=== PATIENT | female | born 1995 | race Caucasian/White ===

== ENCOUNTER 2019-07-18 21:49 | Emergency (ER) | payer MEDICAID, SELFPAY ==
[2019-07-18 21:50] VITALS: BP 112/72; PULSE 82; RESP 15; TEMP 36.8; BMI 39.1
--- NOTE | 2019-07-18 22:39 | CT_ITS ---
HISTORY: RT FLANK/RLQ PAIN AND BLOODY STOOLS,ELEVATED WBCHX:APPENDECTOMY ADDITIONAL HISTORY: None provided. TECHNIQUE: CT images were obtained of the abdomen and pelvis with 100 ml of Isovue 300 IV contrast. Enteric contrast was given. A radiation dose optimization technique was used for this scan. Number of images including paperwork: [id number] COMPARISON: None FINDINGS: LOWER THORAX: No consolidation or pleural effusion. Minimal dependent atelectasis. LIVER: No concerning focal lesion. GALLBLADDER: Contracted. No radiopaque calculi. BILE DUCTS: No significant biliary dilatation. SPLEEN: Upper normal size, about 13 cm AP. PANCREAS: Unremarkable. ADRENAL GLANDS: Unremarkable. KIDNEYS/URETERS: Unremarkable. BOWEL: No bowel obstruction. No significant bowel wall thickening. No localized inflammation. APPENDIX: No evidence of appendicitis. FREE FLUID: Trace free fluid. FREE AIR: None. LYMPH NODES: No pathologic appearing adenopathy. PERITONEUM, RETROPERITONEUM AND MESENTERY: Otherwise unremarkable. VASCULATURE: Unremarkable as imaged. PELVIS: Unremarkable bladder, uterus and adnexa. ABDOMINAL WALL: Unremarkable. OSSEOUS AND SOFT TISSUE STRUCTURES: No acute skeletal findings. CT/Abdomen/Pelvis WITH Contrast IMPRESSION: No acute abdominopelvic abnormality. Individualized dose optimization techniques were used for this CT. at 0105 Reported and signed by: Lauren Morillo MD Electronically Signed: Lauren Morillo MD at 1:05 EDT Tel , Service support ,
--- NOTE | 2019-07-18 22:42 | ED.VIS.GEN ---
History of Present Illness Chief Complaint: Flank Pain Detail of Chief Complaint: Right flank pain, blood in stool Informant: Patient, Family Onset: Today Current Severity: Mild Maximum Severity: Moderate Narrative: Patient presents with pain to the right flank region today. She states that she has chronic diarrhea that tends to be mucousy. Today she noted some blood mixed with the stool when she wiped. There is also some blood in the bowl. She has no known history of ulcerative colitis, Crohn's, or irritable bowel. She does report having some vaginal bleeding recently as well. Her last period ended a week and a half ago. Significant other than states that she started bleeding last evening after they were using a sex toy. She denies vaginal pain. 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 She states she was told that the cancer could come back but would be on her colon if this were to occur. Past Medical History - Allergies and Home Meds Allergies/Adverse Reactions: Allergies carbinoxamine [From Rondec] Allergy (Verified 07/18/19 21:55) Hives pseudoephedrine [From Rondec] Allergy (Verified 07/18/19 21:55) Hives Prior records reviewed: Yes Past Medical History: - - Reviewed Surgical History: appendectomy Lives: Spouse/ Significant Other Review of Systems General: Denies: Chills, Fever Eyes: Denies: Visual changes - bilaterally ENT: Denies: Bilateral ear pain Cardiovascular: Denies: Chest pain Respiratory: Denies: Dyspnea, Cough Gastrointestinal: Reports: Abdominal pain, Diarrhea - Blood mixed with stool Genitourinary: Denies: Dysuria Musculoskeletal: Reports: Back pain - Mild pain to right flank region Neurological: Denies: Headache Endocrine: Denies: Polyuria, Polydipsia Hematologic: Denies: Easy bruising Allergy: Denies: Uticaria Physical Exam Vital Signs/Narrative: Vital Signs Temp Pulse Resp BP 07/18/19 21:50 98.2 F 82 15 112/72 Inital Vital Signs reviewed: Yes General: Well nourished, Well developed ENT: Moist mucous membranes Cardiovascular: Regular rate, Regular rhythm Respiratory: No distress, CTA bilaterally Abdomen: Soft, Tender - Mild tenderness of the mid and lower abdomen., Hypoactive bowel sounds. Negative for: Guarding, Rebound tenderness Extremities: Nontender Skin: Normal color Neurological: Alert, Oriented x3 Psychological: Normal affect Diagnostic/Tx/Re-eval Impressions Abdomen/Pelvis CT 07/18/19 22:39 IMPRESSION: No acute abdominopelvic abnormality. Individualized dose optimization techniques were used for this CT. at 0105 Reported and signed by: Lauren Morillo MD Electronically Signed: Lauren Morillo MD at 1:05 EDT Tel , Service support , 07/18/19 22:39 Abdomen/Pelvis WITH Contrast [CT] Stat Laboratory Results 07/18/19 07/18/19 07/18/19 23:07 23:07 23:07 WBC 11.4 H RBC 5.02 Hgb 15.1 H Hct 45.5 MCV 90.6 MCH 30.1 MCHC 33.2 RDW Std Deviation 41.4 RDW Coeff of Christiane 12.6 Plt Count 248 MPV 10.1 Immature Gran % (Auto) 0.400 Neut % (Auto) 65.6 Lymph % (Auto) 22.6 [place] % (Auto) 6.6 Eos % (Auto) 4.4 Baso % (Auto) 0.4 Absolute Neuts (auto) 7.5 Absolute Lymphs (auto) 2.57 Nucleated RBC % 0 PT 12.8 INR 1.0 APTT 30.5 Sodium 143 Potassium 3.6 Chloride 110 H Carbon Dioxide 29.0 Anion Gap 4 L BUN 15 Creatinine 0.78 Estim Creat Clear Calc 101.80 Est GFR (MDRD) Af Amer 119 Est GFR (MDRD) Non-Af 98 BUN/Creatinine Ratio 19.3 Glucose 93 Calcium 8.7 Serum , Qual Urine Color Urine Clarity Urine pH Ur Specific Driscoll Urine Protein Urine Glucose (UA) Urine Ketones Urine Occult Blood Urine Nitrite Urine Bilirubin Urine Urobilinogen Ur Leukocyte Esterase Urine RBC Urine WBC Ur Squamous Epith Cells Urine Bacteria Urine Mucus 07/18/19 07/19/19 23:07 00:02 WBC RBC Hgb Hct MCV MCH MCHC RDW Std Deviation RDW Coeff of Christiane Plt Count MPV Immature Gran % (Auto) Neut % (Auto) Lymph % (Auto) [place] % (Auto) Eos % (Auto) Baso % (Auto) Absolute Neuts (auto) Absolute Lymphs (auto) Nucleated RBC % PT INR APTT Sodium Potassium Chloride Carbon Dioxide Anion Gap BUN Creatinine Estim Creat Clear Calc Est GFR (MDRD) Af Amer Est GFR (MDRD) Non-Af BUN/Creatinine Ratio Glucose Calcium Serum , Qual NEGATIVE Urine Color Alannah Urine Clarity Cloudy Urine pH 7.0 Ur Specific Driscoll 1.010 Urine Protein Negative Urine Glucose (UA) Normal Urine Ketones Negative Urine Occult Blood 250 H Urine Nitrite Negative Urine Bilirubin Negative Urine Urobilinogen Normal Ur Leukocyte Esterase 25 H Urine RBC 50-100 SEEN Urine WBC 0-5 SEEN Ur Squamous Epith Cells 5-10 SEEN Urine Bacteria 0 SEEN Urine Mucus 0 SEEN - Medical Decision Making She was given Toradol and Zofran followed by a dose of Phenergan for continued nausea. Blood counts are unremarkable. CT is unremarkable. 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 She will be given Dr. De La Garza's information. ED Disposition - Plan for ED Patient: Disposition: Home or Assisted Living Diagnosis: Lower gastrointestinal bleed Instructions: FLANK PAIN, Uncertain Cause, When You Have Gastrointestinal (GI) Bleeding Prescriptions: Ondansetron [Zofran Odt] 4 mg PO Q8H PRN PRN #10 tablet PRN Reason: Nausea Referrals: Darinel De La Garza MD [STAFF PHYSICIAN] - As soon as possible
[2019-07-18] MEDS: Ketorolac 30 MG/ML Syringe IV (23:00)
[2019-07-18] MEDS: Ondansetron 4 MG/2 ML Vial IV (23:00)
[2019-07-18] MEDS: 0.9% Normal Saline 1,000 ML 150 ML IV (23:00)
[2019-07-18 23:17] LABS: Absolute Lymphocyte Count 2.57 X10^3/uL (0.83-4.51); Absolute Neutrophil Count 7.5 X10^3/uL (2.0-7.7); Basophil# 0.04 X10^3/uL; Basophil% 0.4 % (0-1); Eosinophils% 4.4 % (0-5); Hematocrit 45.5 % (37-47); Hemoglobin 15.1 g/dL (12.0-15.0); Lymphocyte # 2.57 X10^3/ul (4.0); Lymphocyte % 22.6 % (19-41); Mean Corp Hgb Conc 33.2 g/dL (32-36); Mean Corpuscular Hgb 30.1 pg (27.0-32.0); Mean Corpuscular Volume 90.6 fL (81-99); Mean Platelet Vol. 10.1 fl (6.2-12.0); Monocyte# 0.75 X10^3/uL; Monocyte% 6.6 % (0-10); NRBC Flagged by Analyzer 0 % (0-5); Neutrophil # 7.46 X10^3/uL (2.7-7.7); Neutrophil % 65.6 % (47-70); Platelet Count 248 K/mm3 (150-450); RBC Distribution Width CV 12.6 % (11.6-14.6); RBC Distribution Width SD 41.4 fl (35.1-43.9); Red Blood Count 5.02 M/mm3 (4.2-5.4); White Blood Count 11.4 K/mm3 (4.4-11.0)
[2019-07-18 23:24] LABS: Prothrombin Time (Protime)PT. 12.8 SECONDS (11.7-14.9)
[2019-07-18 23:25] LABS: Partial Thromboplast Time 30.5 Seconds (24.1-36.2)
[2019-07-18 23:27] LABS: Anion Gap 4 (5-15); BUN 15 mg/dL (7-18); BUN/Creat Ratio 19.3 RATIO (10-20); Calcium,Total 8.7 mg/dL (8.5-10.1); Chloride 110 mmol/L (98-107); Creatinine, Serum 0.78 mg/dL (0.55-1.02); EST Glomerular Filtration Rate 98 mL/min (>60); Est Glom Filt Rate - Afr Amer 119 mL/min (>60); Glucose 93 mg/dL (74-106); Potassium 3.6 mmol/L (3.5-5.1); Sodium Level 143 mmol/L (136-145)
[2019-07-18 23:35] LABS: Internal QC Validated? YES +Cl - CLEAR BKGD; Pregnancy, Serum, hCG Quali. NEGATIVE Negative
[2019-07-19 00:18] LABS: Bacteria 0 SEEN /hpf (None Seen); Color, Urine Amber (Yellow); Glucose, Dipstick Normal (Normal); Ketone-Dipstick Negative (Negative); Leukocyte Esterase-Dipstick 25 /ul (Negative); Mucous, Urine 0 SEEN /hpf (<or=2+); Nitrite-Dipstick Negative (Negative); Occult Blood-Urine 250 /ul (Negative); Protein-Dipstick Negative (Negative); Urine Bilirubin Dipstick Negative (Negative); Urine Clarity Cloudy (Clear); Urine Urobilinogen Normal (Normal)
[2019-07-19 00:26] LABS: Red Blood Cells-Urine 50-100 SEEN /hpf (0-5); Squamous Epithelial Cells - UA 5-10 SEEN /hpf (5-10); White Blood Cells 0-5 SEEN /hpf (0-5)
[2019-07-19 01:00] VITALS: PULSE 60; RESP 24; O2SAT 97
[2019-07-19] MEDS: proMETHazine 25 MG/ML Syringe 12.5 MG IV (01:06)
== END 2019-07-19 01:26 | disposition home or self-care (01) ==
PROVIDERS: Emergency Provider Emergency Medicine
DX: K92.1 Melena (principal); Z85.038 Personal history of other malignant neoplasm of large intestine
CPT/HCPCS: 74177; 80048; 81001; 84703; 85025; 85610; 85730; 96361; 96374; 96375; 99284; J7030; Q9967; A4216; J2405

== ENCOUNTER 2019-07-22 21:55 | Inpatient (IN) | payer MEDICAID, SELFPAY ==
[2019-07-21 15:09] VITALS: BMI 39.1
[2019-07-22 21:57] VITALS: BP 126/76; PULSE 88; RESP 16; TEMP 36.9; O2SAT 100; BMI 38.2
--- NOTE | 2019-07-22 22:22 | CM.ED ---
SOCIAL WORK CALL TO CRISIS TO UPDATE ON PATIENT. SPOKE WITH MARC. MARC REQUESTING CALL WHEN PATIENT IS MEDICALLY CLEARED FOR CONSULT. UPDATED STAFF. PREMA LIZAMA, PHARMACIST IN CHARGE, TRACK REPAIR WORKER.
[2019-07-22 22:25] LABS: Absolute Lymphocyte Count 2.14 X10^3/uL (0.83-4.51); Absolute Neutrophil Count 8.4 X10^3/uL (2.0-7.7); Basophil# 0.05 X10^3/uL; Basophil% 0.4 % (0-1); Eosinophil# 0.49 X10^3/uL; Eosinophils% 4.2 % (0-5); Hematocrit 46.9 % (37-47); Hemoglobin 15.3 g/dL (12.0-15.0); Lymphocyte # 2.14 X10^3/ul (4.0); Lymphocyte % 18.2 % (19-41); Mean Corp Hgb Conc 32.6 g/dL (32-36); Mean Corpuscular Hgb 29.4 pg (27.0-32.0); Mean Corpuscular Volume 90.2 fL (81-99); Mean Platelet Vol. 9.8 fl (6.2-12.0); Monocyte# 0.61 X10^3/uL; Monocyte% 5.2 % (0-10); NRBC Flagged by Analyzer 0 % (0-5); Neutrophil # 8.42 X10^3/uL (2.7-7.7); Neutrophil % 71.5 % (47-70); Platelet Count 275 K/mm3 (150-450); RBC Distribution Width CV 12.5 % (11.6-14.6); RBC Distribution Width SD 41.4 fl (35.1-43.9); White Blood Count 11.8 K/mm3 (4.4-11.0)
[2019-07-22 22:36] LABS: Internal QC Validated? YES +Cl - CLEAR BKGD; Pregnancy, Serum, hCG Quali. NEGATIVE Negative
[2019-07-22] MEDS: LORazepam 2 MG/ML Syringe 1 MG IV (22:36)
[2019-07-22 22:42] LABS: Anion Gap 3 (5-15); BUN 9 mg/dL (7-18); BUN/Creat Ratio 12.7 RATIO (10-20); Chloride 108 mmol/L (98-107); Creatinine, Serum 0.71 mg/dL (0.55-1.02); EST Glomerular Filtration Rate 109 mL/min (>60); Est Glom Filt Rate - Afr Amer 132 mL/min (>60); Estimated Creatinine Clearance 111.84 ml/min; Glucose 83 mg/dL (74-106); Magnesium 1.9 mg/dL (1.6-2.6); Potassium 3.3 mmol/L (3.5-5.1); Sodium Level 140 mmol/L (136-145)
[2019-07-22 22:50] LABS: Amphetamine Urine VISTA NEGATIVE (<1000 ng/mL); Barbiturate Urine VISTA NEGATIVE (< 200 ng/mL); Benzodiazepine Urine VISTA NEGATIVE (< 200 ng/mL); Cocaine Urine VISTA NEGATIVE (< 300 ng/mL); Ecstacy Urine VISTA NEGATIVE (< 500 ng/mL); Methadone Urine VISTA NEGATIVE (< 300 ng/mL); PCP Urine VISTA NEGATIVE (< 25 ng/mL); THC Urine VISTA NEGATIVE (< 50 ng/mL); Vista UDS pH Range 6
--- NOTE | 2019-07-22 23:00 | ED.RN ---
HOSPITALIST PAGED FOR DR [facility]
--- NOTE | 2019-07-22 23:01 | ED.DCSUM_ITS ---
- ER Visit Summary Date of Service: 07/22/19 Chief Complaint: [Depression and suicidal attempt] History of Present Illness: The patient is a 24 F [presents to the emergency department after an attempted intentional overdose about a half an hour ago. Patient states that she took 2 handfuls of Unisom tablets 50 mg each. Patient feels nauseated but has not vomited. Patient denies auditory or visual hallucinations. She does have history of depression. Patient states that she has been compliant with her medications. She denies any other ingestions. She denies any illicit drug use. She denies any alcohol.] Physical Examination: [HEENT-PERRLA, EOMI. Cranial nerves II through XII grossly intact. TMs clear. Mucous membranes dry. No adenopathy. Speech is slightly slurred. Cardiovascular-regular rate and rhythm without murmur or ectopy Lungs-clear to auscultation, chest wall stable without crepitus or subcu emphysema Abdomen-normoactive bowel sounds, soft, nontender, no rebound or rigidity, no peritoneal signs. Extremities-intact ?4, normal range of motion, normal pulses, atraumatic] Test Results: [CBC with differential showed a white count of 11.8, hemoglobin 15, hematocrit 47, platelets 275. Chemistries unremarkable. hCG was negative. Alcohol was negative. Toxicology screen was normal. Tylenol and salicylate level pending]. EKG showed a sinus tachycardia with ventricular rate of 108 bpm with no acute ST segment changes. Emergency Department Course and Treatment: [Patient case was discussed with poison control. Given the patient was already symptomatic it was recommended that she not receive charcoal the risk of aspiration. Patient did receive 1 mg of Ativan for increased agitation.] Treatment Plan: [] Disposition: [Admit to ICU] Impression: [Intentional drug overdose Suicidal ideation Depression Anticholinergic syndrome] This note was generated with [employer] dictation software. It may contain incorrect words, spelling, and punctuation that were not noted in review of the chart prior to signing ED Disposition - Plan for ED Patient: Referrals: Care Physician,No Primary [Primary Care Provider] -
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
--- NOTE | 2019-07-22 23:09 | ED.RN ---
NO OLD EKGS
[2019-07-22 23:14] VITALS: BP 93/56; PULSE 101; RESP 16; O2SAT 96
[2019-07-22 23:23] LABS: Acetaminophen (Tylenol) Level < 2.0 ug/mL (10.0-30.0); Salicylate 3.5 mg/dL (2.8-20.0)
[2019-07-23] VITALS (34 sets, daily range): BP systolic 86–144; BP diastolic 48–115; PULSE 64–107; RESP 13–26; TEMP 36.6–36.9; O2SAT 93–100; BMI 39.2
[2019-07-23] MEDS: LORazepam 2 MG/ML Syringe 1 MG IV ×2 (00:15→01:36)
--- NOTE | 2019-07-23 00:48 | NURSING ---
pt unable to answer.
[2019-07-23] MEDS: Lactated Ringers 1,000 ML 100 ML IV ×2 (00:57→10:24)
[2019-07-23] MEDS: Potassium Chloride 10mEq/100mL 10 MEQ/100 ML IV.SOLN. 100 MEQ IV BOLUS ×4 (01:12→04:39)
[2019-07-23] MEDS: 0.9% NaCl IVPB Med Flush (250 mL) 15 ML IV (01:12)
[2019-07-23] MEDS: 0.9% NaCl Peripheral Flush Adult/Peds IV (01:36)
--- NOTE | 2019-07-23 03:05 | NURSING ---
updated poison control at this time.
[2019-07-23 06:05] LABS: Absolute Lymphocyte Count 1.77 X10^3/uL (0.83-4.51); Absolute Neutrophil Count 11.5 X10^3/uL (2.0-7.7); Basophil# 0.05 X10^3/uL; Basophil% 0.3 % (0-1); Eosinophil# 0.12 X10^3/uL; Eosinophils% 0.8 % (0-5); Hematocrit 44.3 % (37-47); Hemoglobin 14.7 g/dL (12.0-15.0); Lymphocyte # 1.77 X10^3/ul (4.0); Lymphocyte % 12.3 % (19-41); Mean Corp Hgb Conc 33.2 g/dL (32-36); Mean Corpuscular Hgb 29.9 pg (27.0-32.0); Mean Platelet Vol. 10.2 fl (6.2-12.0); Monocyte# 0.85 X10^3/uL; Monocyte% 5.9 % (0-10); NRBC Flagged by Analyzer 0 % (0-5); Neutrophil # 11.48 X10^3/uL (2.7-7.7); Neutrophil % 80.2 % (47-70); Platelet Count 248 K/mm3 (150-450); RBC Distribution Width CV 12.5 % (11.6-14.6); RBC Distribution Width SD 41.4 fl (35.1-43.9); Red Blood Count 4.92 M/mm3 (4.2-5.4); White Blood Count 14.3 K/mm3 (4.4-11.0)
[2019-07-23 06:59] LABS: Anion Gap 8 (5-15); BUN 7 mg/dL (7-18); BUN/Creat Ratio 9.8 RATIO (10-20); Chloride 109 mmol/L (98-107); Creatinine, Serum 0.71 mg/dL (0.55-1.02); EST Glomerular Filtration Rate 109 mL/min (>60); Est Glom Filt Rate - Afr Amer 132 mL/min (>60); Estimated Creatinine Clearance 111.84 ml/min; Glucose 94 mg/dL (74-106); Potassium 3.9 mmol/L (3.5-5.1); Sodium Level 142 mmol/L (136-145)
--- NOTE | 2019-07-23 07:53 | CON.PCM_ITS ---
Problem List (1) Anticholinergic drug overdose Status: Acute Qualifiers: Encounter type: initial encounter Injury intent: intentional self-harm Qualified Code(s): T44.3X2A - Poisoning by other parasympatholytics [anticholinergics and antimuscarinics] and spasmolytics, intentional self-harm, initial encounter (2) Suicide attempt Status: Acute (3) Depression Status: Chronic Qualifiers: Depression Type: major depressive disorder Major depression recurrence: recurrent Active/Remission status: currently active Major depression episode severity: severe Psychotic features: with psychotic features Qualified Co de(s): F33.3 - Major depressive disorder, recurrent, severe with psychotic symptoms Reason for Consult Date of Consultation: 07/23/19 Reason for Consultation: Unisom overdose History of Present Illness: The patient is a 24 year old F, with past medical history listed below, who pres ented to [facility] on 07/22/2019 approximately 1-1/2 hours after taking approximately 35 Unisom 50 mg tablets. Patient reportedly had not had any vomiting despite nausea. Patient did not have any auditory or visual hallucinations initially. Patient had denied any illicit drug use or alcohol at that time. On presentation in the ER, patient was noted to have a relatively unremarkable laboratory work-up. EKG did show sinus tachycardia with a rate of [address] segment changes. Patient was not given charcoal, but did receive 1 mg of Ativan secondary to agitation. Patient was admitted to the intensive care unit for further monitoring. Since being in the intensive care unit, patient has become more impulsive and has been reaching for staff. Patient has been hallucinating saying there are jellybeans in the bed, but this appears to be improving with time. Patient does have a very garbled speech, but no family is at the bedside to see if this is her baseline. Patient reportedly does have a history of cutting secondary to anxiety. Patient reportedly was brought in by her boyfriend, but will not tell me exactly what led to her stress for this acute event. Patient is very guarded about previous psychiatric history and hallucinations. Patient did readily admit to me that she was trying to hurt her self with the medication. Unable to obtain a review of systems secondary to patient's current cooperation. Past Medical History Past Medical History (Chronic Problems): Chronic Problems (Last Reviewed 07/22/19 @ 23:49 by Jaskaran Hernandez MD) Depression (Chronic) Medical History: Medical History (Last Reviewed 07/22/19 @ 23:49 by Jaskaran Hernandez MD) Depression F32.9 Allergies carbinoxamine [From [facility]] Allergy (Verified 07/22/19 21:56) Hives pseudoephedrine [From [facility]] Allergy (Verified 07/22/19 21:56) Hives Home Medications: Ambulatory Orders Medication Instructions Recorded NK 07/22/19 Surgical History: Surgical History (Last Reviewed 07/22/19 @ 23:49 by Jaskaran Hernandez MD) 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 - *Family History Maternal Family History: Family History (Last Reviewed 07/22/19 @ 23:49 by Jaskaran Hernandez MD) Mother Asthma Diabetes Review of Systems Unable to obtain accurate/complete ROS d/t: Current mental status Patient Problems: Active and Suspected Problems (Last Reviewed 07/22/19 @ 23:49 by Jaskaran Hernandez MD) Suicide attempt (Acute) Anticholinergic drug overdose (Acute) - Physical Exam General: Alert, Confused, Disoriented, Non-Cooperative, - - Morbidly obese. Some garbled speech. HEENT: Atraumatic, PERRLA, EOMI, Normocephalic, - - Scleral injection without icterus Oral: No Gingival or Mucosal Lesions/ Ulcerations, Dry Mucosa Neck: Supple, No JVD, No Nodes, Trachea Midline Lungs: No rhonchi, No wheeze, No rales, Diminished, - - Fair effort. Cardiovascular: Regular rate, Regular Rhythm, Normal S1, Normal S2, No murmurs, No rub noted, No Gallop Abdomen: Bowel Sounds Present, Soft, Non Tender, Non-Distended, Obese Extremities: No clubbing, No cyanosis, No edema, Capillary Refill Less than 3 Seconds Skin: - - Dressing on left forearm was not removed Musculoskeletal: No Tenderness to Palpation of Joints or Extremities Lymphatic: No Cervical, Supraclavicular, or Inguinal Adenopathy Neurological: Cranial nerves II-XII grossly intact, Neuro grossly intact, Motor Exam 5/5 strength throughout, - - Spontaneous movement of all extremities. Tracks appropriately. Psych/Mental Status: Anxious, Restless Vital Signs Temp Pulse Resp BP Pulse Ox 36.6 C 86 13 101/56 L 97 07/23/19 00:43 07/23/19 06:00 07/23/19 06:00 07/23/19 06:00 07/23/19 06:00 Oxygen Delivery Method Room Air Weight: 106.8 kg Body Mass Index (BMI) 39.2 Intake and Output for Last 24 Hours 07/21/19 07/22/19 07/23/19 23:59 23:59 23:59 Intake Total 819.92 / 819.92 Output Total 350 / 350 Balance 469.92 / 469.92 Laboratory Tests Past 24 Hrs 07/22/19 07/22/19 07/22/19 22:10 22:10 22:10 WBC 11.8 H RBC 5.20 Hgb 15.3 H Hct 46.9 MCV 90.2 MCH 29.4 MCHC 32.6 RDW Std Deviation 41.4 RDW Coeff of Christiane 12.5 Plt Count 275 MPV 9.8 Immature Gran % (Auto) 0.500 Neut % (Auto) 71.5 H Lymph % (Auto) 18.2 L [place] % (Auto) 5.2 Eos % (Auto) 4.2 Baso % (Auto) 0.4 Absolute Neuts (auto) 8.4 H Absolute Lymphs (auto) 2.14 Nucleated RBC % 0 Sodium 140 Potassium 3.3 L Chloride 108 H Carbon Dioxide 29.0 Anion Gap 3 L BUN 9 Creatinine 0.71 Estim Creat Clear Calc 111.84 Est GFR (MDRD) Af Amer 132 Est GFR (MDRD) Non-Af 109 BUN/Creatinine Ratio 12.7 Glucose 83 Calcium 9.0 Magnesium 1.9 Serum , Qual Salicylates Urine Opiates Screen Urine Methadone Screen Acetaminophen Ur Barbiturates Screen Ur Phencyclidine Scrn Ur Amphetamines Screen U Methamphetamin-MDMA U Benzodiazepines Scrn Urine Cocaine Screen U Cannabinoids Screen Ur Drug Screen Comment Ethyl Alcohol 5.0 07/22/19 07/22/19 07/22/19 22:10 22:10 22:25 WBC RBC Hgb Hct MCV MCH MCHC RDW Std Deviation RDW Coeff of Christiane Plt Count MPV Immature Gran % (Auto) Neut % (Auto) Lymph % (Auto) [place] % (Auto) Eos % (Auto) Baso % (Auto) Absolute Neuts (auto) Absolute Lymphs (auto) Nucleated RBC % Sodium Potassium Chloride Carbon Dioxide Anion Gap BUN Creatinine Estim Creat Clear Calc Est GFR (MDRD) Af Amer Est GFR (MDRD) Non-Af BUN/Creatinine Ratio Glucose Calcium Magnesium Serum , Qual NEGATIVE Salicylates 3.5 Urine Opiates Screen NEGATIVE Urine Methadone Screen NEGATIVE Acetaminophen < 2.0 L Ur Barbiturates Screen NEGATIVE Ur Phencyclidine Scrn NEGATIVE Ur Amphetamines Screen NEGATIVE U Methamphetamin-MDMA NEGATIVE U Benzodiazepines Scrn NEGATIVE Urine Cocaine Screen NEGATIVE U Cannabinoids Screen NEGATIVE Ur Drug Screen Comment Ethyl Alcohol 07/23/19 07/23/19 07/23/19 05:50 05:50 06:25 WBC 14.3 H RBC 4.92 Hgb 14.7 Hct 44.3 MCV 90.0 MCH 29.9 MCHC 33.2 RDW Std Deviation 41.4 RDW Coeff of Christiane 12.5 Plt Count 248 MPV 10.2 Immature Gran % (Auto) 0.500 Neut % (Auto) 80.2 H Lymph % (Auto) 12.3 L [place] % (Auto) 5.9 Eos % (Auto) 0.8 Baso % (Auto) 0.3 Absolute Neuts (auto) 11.5 H Absolute Lymphs (auto) 1.77 Nucleated RBC % 0 Sodium Cancelled 142 Potassium Cancelled 3.9 Chloride Cancelled 109 H Carbon Dioxide Cancelled 25.0 Anion Gap Cancelled 8 BUN Cancelled 7 Creatinine Cancelled 0.71 Estim Creat Clear Calc Cancelled 111.84 Est GFR (MDRD) Af Amer Cancelled 132 Est GFR (MDRD) Non-Af Cancelled 109 BUN/Creatinine Ratio Cancelled 9.8 L Glucose Cancelled 94 Calcium Cancelled 9.0 Magnesium Serum , Qual Salicylates Urine Opiates Screen Urine Methadone Screen Acetaminophen Ur Barbiturates Screen Ur Phencyclidine Scrn Ur Amphetamines Screen U Methamphetamin-MDMA U Benzodiazepines Scrn Urine Cocaine Screen U Cannabinoids Screen Ur Drug Screen Comment Ethyl Alcohol Assessment/Plan Active and Suspected Problems (Last Reviewed 07/22/19 @ 23:49 by Jaskaran Hernandez MD) Suicide attempt (Acute) Anticholinergic drug overdose (Acute) RECOMMENDATIONS: 1. Continue supportive care 2. Continuous QT monitoring 3. Eventual crisis evaluation 4. Attempt removal of restraints later today IMPRESSIONS: 1. Suicide attempt with anticholinergic overdose Vision appears to be hemodynamically stable at this time. Unclear if patient is having hallucinations secondary to medication effect versus baseline psychiatric condition. We will continue to monitor QT closely. Unclear if patient is being truthful on the amount that it was actually taken, but does appear to have some of the toxidrome. No hypotension or tachycardia is noted. QT has remained acceptable at this time. Research has shown that physostigmine has little utility given rapid distribution from the plasma into the tissue with Benadryl. Patient will need a crisis evaluation, probably later today. 2. Hypokalemia Unclear etiology on presentation. Patient has responded well to potassium supplementation. Patient is on LR for maintenance fluids. 3. Agitation Unclear if this is secondary to medication effect versus baseline psychosis. Patient currently is restrained, but will attempt to remove restraints later today. If patient remains restrained, DVT prophylaxis may need to be initiated. Code Visit Inpatient E&M: 58905 Init Hosp L2
--- NOTE | 2019-07-23 11:13 | PN_ITS ---
Patient Problems: Active and Suspected Problems (Last Reviewed 07/22/19 @ 23:49 by Jaskaran Hernandez MD) Suicide attempt (Acute) Anticholinergic drug overdose (Acute) Subjective: Fell asleep earlier. Was hallucinating earlier seeing jellybeans. Vitals/I&O's: Vital Signs Temp Pulse Resp BP Pulse Ox 36.6 C 64 18 103/62 93 07/23/19 00:43 07/23/19 09:00 07/23/19 09:00 07/23/19 09:00 07/23/19 09:00 Oxygen Delivery Method Room Air Weight: 106.8 kg Body Mass Index (BMI) 39.2 Intake and Output for Last 24 Hours 07/21/19 07/22/19 07/23/19 23:59 23:59 23:59 Intake Total 1353.25 / 1353.25 Output Total 350 / 350 Balance 1003.25 / 1003.25 General: No apparent distress, - - somnolent, did not awake with stimuli. HEENT: Atraumatic, PERRLA, Normocephalic, - - no icterus Oral: Moist Mucosa, No Gingival or Mucosal Lesions/ Ulcerations Neck: No Nodes, Thyroid Normal Size and Texture Lungs: Clear to auscultation, Normal air movement, No rhonchi, No wheeze, No r ales Cardiovascular: Regular rate, Regular Rhythm, Normal S1, Normal S2, No murmurs Abdomen: Bowel Sounds Present, Soft, Non Tender, Non-Distended, No Hepato- splenomegaly, Obese Extremities: No edema, No Calf Tenderness Skin: No rashes, No breakdown Musculoskeletal: No Tenderness to Palpation of Joints or Extremities, No Muscle Wasting Neurological: Muscle tone normal, - - no clonus. Laboratory Results 07/22/19 22:10: WBC 11.8 H, RBC 5.20, Hgb 15.3 H, Hct 46.9, MCV 90.2, MCH 29.4, MCHC 32.6, RDW Std Deviation 41.4, RDW Coeff of Christiane 12.5, Plt Count 275, MPV 9.8, Immature Gran % (Auto) 0.500, Neut % (Auto) 71.5 H, Lymph % (Auto) 18.2 L, [place] % (Auto) 5.2, Eos % (Auto) 4.2, Baso % (Auto) 0.4, Absolute Neuts (auto) 8.4 H, Absolute Lymphs (auto) 2.14, Nucleated RBC % 0 07/22/19 22:10: Sodium 140, Potassium 3.3 L, Chloride 108 H, Carbon Dioxide 29.0, Anion Gap 3 L, BUN 9, Creatinine 0.71, Estim Creat Clear Calc 111.84, Est GFR (MDRD) Af Amer 132, Est GFR (MDRD) Non-Af 109, BUN/Creatinine Ratio 12.7, Glucose 83, Calcium 9.0, Magnesium 1.9 07/22/19 22:10: Ethyl Alcohol 5.0 07/22/19 22:10: Serum , Qual NEGATIVE 07/22/19 22:10: Salicylates 3.5, Acetaminophen < 2.0 L 07/22/19 22:25: Urine Opiates Screen NEGATIVE, Urine Methadone Screen NEGATIVE, Ur Barbiturates Screen NEGATIVE, Ur Phencyclidine Scrn NEGATIVE, Ur Amphetamines Screen NEGATIVE, U Methamphetamin-MDMA NEGATIVE, U Benzodiazepines Scrn NEGATIVE, Urine Cocaine Screen NEGATIVE, U Cannabinoids Screen NEGATIVE, Ur Drug Screen Comment 07/23/19 05:50: WBC 14.3 H, RBC 4.92, Hgb 14.7, Hct 44.3, MCV 90.0, MCH 29.9, MCHC 33.2, RDW Std Deviation 41.4, RDW Coeff of Christiane 12.5, Plt Count 248, MPV 10.2, Immature Gran % (Auto) 0.500, Neut % (Auto) 80.2 H, Lymph % (Auto) 12.3 L, [place] % (Auto) 5.9, Eos % (Auto) 0.8, Baso % (Auto) 0.3, Absolute Neuts (auto) 11.5 H, Absolute Lymphs (auto) 1.77, Nucleated RBC % 0 07/23/19 05:50: Sodium Cancelled, Potassium Cancelled, Chloride Cancelled, Carbon Dioxide Cancelled, Anion Gap Cancelled, BUN Cancelled, Creatinine Cancelled, Estim Creat Clear Calc Cancelled, Est GFR (MDRD) Af Amer Cancelled, Est GFR (MDRD) Non-Af Cancelled, BUN/Creatinine Ratio Cancelled, Glucose Cancelled, Calcium Cancelled 07/23/19 06:25: Sodium 142, Potassium 3.9, Chloride 109 H, Carbon Dioxide 25.0, Anion Gap 8, BUN 7, Creatinine 0.71, Estim Creat Clear Calc 111.84, Est GFR (MDRD) Af Amer 132, Est GFR (MDRD) Non-Af 109, BUN/Creatinine Ratio 9.8 L, Glucose 94, Calcium 9.0 Current Medications Dextrose (D50w Syringe) 0 gm IV X1 PRN; Protocol PRN Reason: Hypoglycemia Glucagon () 1 mg IM .X1 PRN PRN Reason: Hypoglycemia Lactated Ringer's () 1,000 mls @ 100 mls/hr IV .Q10H PATRICK Stop: 07/23/19 20:35 Last Admin: 07/23/19 10:24 Dose: 100 mls/hr Documented by: Sodium Chloride () 250 mls @ 15 mls/hr IV .[id number] PRN PRN Reason: SALINE FLUSH Last Infusion: 07/23/19 06:11 Dose: 0 mls/hr Documented by: Lorazepam (Ativan) 1 mg IV Q3H PRN PRN PRN Reason: AGITATION Last Admin: 07/23/19 01:36 Dose: 1 mg Documented by: Sodium Chloride () 10 - 40 ml IV UD PRN PRN Reason: SALINE FLUSH Last Admin: 07/23/19 01:36 Dose: 10 ml Documented by: Medical Necessity - Tobacco Use Smoking Status: Current every day smoker Tobacco Use: - - unable to obtain because patient is confused. Assessment/Plan All Active Problems (Last Reviewed 07/22/19 @ 23:49 by Jaskaran Hernandez MD) Suicide attempt (Acute) Anticholinergic drug overdose (Acute) 1. anticholinergic drug overdose * intentional * supportive mgmt * still too somnolent at this time for Crisis evaluation. * continue tele, no QT prolongation at this time. * continue LR 2. hypokalemia * resolved * monitor 3. Suicide attempt * Crisis evaluation when more awake 4. VTE proph: Low risk at this time and therefore not indicated Code Visit Inpatient E&M: 07372 [facility] Hosp L3
--- NOTE | 2019-07-23 14:48 | CASEMGMT ---
SOCIAL WORK SPOKE WITH NURSE, UPDATED CRISIS IS AWARE OF PATIENT AND IS TO BE CONTACTED ONCE PATIENT IS MEDICALLY CLEARED. PREMA LIZAMA, ROLLS BAKER, BINDING NICKER.
[2019-07-23] MEDS: Acetaminophen 325 MG Tablet 650 MG PO (15:44)
[2019-07-24] VITALS (16 sets, daily range): BP systolic 90–129; BP diastolic 46–70; PULSE 61–100; RESP 14–27; TEMP 36–36.7; O2SAT 95–100
--- NOTE | 2019-07-24 07:04 | PN_ITS ---
Subjective: Patient did well overnight. No acute issues were reported. Patient with no complaints this morning. No significant QT prolongation noted on telemetry overnight. Patient is not reporting any significant nausea, vomiting or diarrhea General: Alert, Oriented x3, Cooperative, No apparent distress, Well developed, Well nourished, - - Obese. No conversational dyspnea. HEENT: Atraumatic, PERRLA, EOMI, Normocephalic, - - No scleral icterus or injection noted. Oral: Moist Mucosa, No Gingival or Mucosal Lesions/ Ulcerations Neck: Supple, No JVD, No Nodes, Trachea Midline Lungs: Clear to auscultation, Normal air movement, No rhonchi, No wheeze, No rales Cardiovascular: Regular rate, Regular Rhythm, Normal S1, Normal S2, No murmurs, No rub noted, No Gallop Abdomen: Bowel Sounds Present, Soft, Non Tender, Non-Distended, Obese Extremities: No clubbing, No cyanosis, No edema, Capillary Refill Less than 3 Seconds Skin: No rashes, No breakdown Musculoskeletal: No Tenderness to Palpation of Joints or Extremities Lymphatic: No Cervical, Supraclavicular, or Inguinal Adenopathy Neurological: Cranial nerves II-XII grossly intact, Neuro grossly intact, Motor Exam 5/5 strength throughout Psych/Mental Status: Alert and oriented to time, place, person, mood and affect Vital Signs Temp Pulse Resp BP Pulse Ox 36.1 C L 65 17 129/52 H 98 07/24/19 04:00 07/24/19 05:00 07/24/19 05:00 07/24/19 05:00 07/24/19 05:00 Oxygen Delivery Method Room Air Weight: 105.1 kg Body Mass Index (BMI) 39.2 Intake and Output for Last 24 Hours 07/22/19 07/23/19 07/24/19 23:59 23:59 23:59 Intake Total 3153.25 / 3153.25 Output Total 550 / 550 Balance 2603.25 / 2603.25 Labs (Last 48 Hours) 07/22/19 07/22/19 07/22/19 22:10 22:10 22:10 WBC 11.8 H RBC 5.20 Hgb 15.3 H Hct 46.9 MCV 90.2 MCH 29.4 MCHC 32.6 RDW Std Deviation 41.4 RDW Coeff of Christiane 12.5 Plt Count 275 MPV 9.8 Immature Gran % (Auto) 0.500 Neut % (Auto) 71.5 H Lymph % (Auto) 18.2 L [place] % (Auto) 5.2 Eos % (Auto) 4.2 Baso % (Auto) 0.4 Absolute Neuts (auto) 8.4 H Absolute Lymphs (auto) 2.14 Nucleated RBC % 0 Sodium 140 Potassium 3.3 L Chloride 108 H Carbon Dioxide 29.0 Anion Gap 3 L BUN 9 Creatinine 0.71 Estim Creat Clear Calc 111.84 Est GFR (MDRD) Af Amer 132 Est GFR (MDRD) Non-Af 109 BUN/Creatinine Ratio 12.7 Glucose 83 Calcium 9.0 Magnesium 1.9 Serum , Qual Salicylates Urine Opiates Screen Urine Methadone Screen Acetaminophen Ur Barbiturates Screen Ur Phencyclidine Scrn Ur Amphetamines Screen U Methamphetamin-MDMA U Benzodiazepines Scrn Urine Cocaine Screen U Cannabinoids Screen Ur Drug Screen Comment Ethyl Alcohol 5.0 07/22/19 07/22/19 07/22/19 22:10 22:10 22:25 WBC RBC Hgb Hct MCV MCH MCHC RDW Std Deviation RDW Coeff of Christiane Plt Count MPV Immature Gran % (Auto) Neut % (Auto) Lymph % (Auto) [place] % (Auto) Eos % (Auto) Baso % (Auto) Absolute Neuts (auto) Absolute Lymphs (auto) Nucleated RBC % Sodium Potassium Chloride Carbon Dioxide Anion Gap BUN Creatinine Estim Creat Clear Calc Est GFR (MDRD) Af Amer Est GFR (MDRD) Non-Af BUN/Creatinine Ratio Glucose Calcium Magnesium Serum , Qual NEGATIVE Salicylates 3.5 Urine Opiates Screen NEGATIVE Urine Methadone Screen NEGATIVE Acetaminophen < 2.0 L Ur Barbiturates Screen NEGATIVE Ur Phencyclidine Scrn NEGATIVE Ur Amphetamines Screen NEGATIVE U Methamphetamin-MDMA NEGATIVE U Benzodiazepines Scrn NEGATIVE Urine Cocaine Screen NEGATIVE U Cannabinoids Screen NEGATIVE Ur Drug Screen Comment Ethyl Alcohol 07/23/19 07/23/19 07/23/19 05:50 05:50 06:25 WBC 14.3 H RBC 4.92 Hgb 14.7 Hct 44.3 MCV 90.0 MCH 29.9 MCHC 33.2 RDW Std Deviation 41.4 RDW Coeff of Christiane 12.5 Plt Count 248 MPV 10.2 Immature Gran % (Auto) 0.500 Neut % (Auto) 80.2 H Lymph % (Auto) 12.3 L [place] % (Auto) 5.9 Eos % (Auto) 0.8 Baso % (Auto) 0.3 Absolute Neuts (auto) 11.5 H Absolute Lymphs (auto) 1.77 Nucleated RBC % 0 Sodium Cancelled 142 Potassium Cancelled 3.9 Chloride Cancelled 109 H Carbon Dioxide Cancelled 25.0 Anion Gap Cancelled 8 BUN Cancelled 7 Creatinine Cancelled 0.71 Estim Creat Clear Calc Cancelled 111.84 Est GFR (MDRD) Af Amer Cancelled 132 Est GFR (MDRD) Non-Af Cancelled 109 BUN/Creatinine Ratio Cancelled 9.8 L Glucose Cancelled 94 Calcium Cancelled 9.0 Magnesium Serum , Qual Salicylates Urine Opiates Screen Urine Methadone Screen Acetaminophen Ur Barbiturates Screen Ur Phencyclidine Scrn Ur Amphetamines Screen U Methamphetamin-MDMA U Benzodiazepines Scrn Urine Cocaine Screen U Cannabinoids Screen Ur Drug Screen Comment Ethyl Alcohol Medical Necessity - Tobacco Use Smoking Status: Current every day smoker Tobacco Use: - Assessment/Plan All Active Problems (Last Reviewed 07/22/19 @ 23:49 by Jaskaran Hernandez MD) Suicide attempt (Acute) Anticholinergic drug overdose (Acute) RECOMMENDATIONS: 1. Continue supportive care 2. Okay to contact crisis from my perspective 3. Medically stable on room air. Will sign off from a critical care perspective 4. Continue suicide precautions until evaluated by crisis IMPRESSIONS: 1. Suicide attempt with anticholinergic overdose Patient appears to be hemodynamically stable at this time. Hallucinations have resolved. Unclear if this is secondary to medication effect. Patient appears to be hemodynamically/medically stable for crisis evaluation from my perspective 2. Hypokalemia Resolved. Unclear etiology on presentation. Patient has responded well to potassium supplementation. Patient is on LR for maintenance fluids. 3. Agitation Appears to be secondary to medication effect. Patient is no longer restrained. Code Visit Inpatient E&M: 45222 Subs Hosp L2
--- NOTE | 2019-07-24 10:23 | DCINST_ITS ---
- Discharge Diagnoses Current Active Problems: Current Active and Chronic Problems (Last Reviewed 07/22/19 @ 23:49 by Jaskaran Hernandez MD) Suicide attempt (Acute) Depression (Chronic) Anticholinergic drug overdose (Acute) You will use the following diet at home:: No restrictions Your food should be the consistency of: Regular Your liquids should be the consistency of: Regular/Thin Discharge Activity: Return to Normal Activity Call your doctor if you observe: - - suicidal thoughts Allergies/Adverse Reactions: Allergies carbinoxamine [From [facility]] Allergy (Verified 07/22/19 21:56) Hives pseudoephedrine [From [facility]] Allergy (Verified 07/22/19 21:56) Hives Medications to take at Discharge Acetaminophen [Tylenol Tablet] 650 mg PO Q4H PRN PRN tablet 07/24/19 Primary Care Physician: Care Physician,No Primary [Primary Care Provider] - Test Results: Test results from this visit will be discussed in further detail at your follow- up appointment, if applicable. Proposed Discharge Date: 07/24/19
--- NOTE | 2019-07-24 10:24 | DS.PCM_ITS ---
Discharge Date and Diagnosis - Problem List Patient Problems: Active and Suspected Problems (Last Reviewed 07/22/19 @ 23:49 by Jaskaran Hernandez MD) Suicide attempt (Acute) Anticholinergic drug overdose (Acute) Date of Admission: 07/22/19 Date of Discharge: 07/24/19 - Primary Discharge Diagnosis Active and Suspected Problems (Last Reviewed 07/22/19 @ 23:49 by Jaskaran Hernandez MD) Suicide attempt (Acute) Anticholinergic drug overdose (Acute) - Secondary Discharge Diagnosis Chronic Problems (Last Reviewed 07/22/19 @ 23:49 by Jaskaran Hernandez MD) Depression (Chronic) Hospital Course and Treatment [place]: [facility] Operations: None Procedures: None Summary of Care Provided: The patient is a 24 year old F presents with intentional overdose with Unisom. 1. anticholinergic drug overdose * intentional * resolved * supportive mgmt * still too somnolent at this time for Crisis evaluation. * continue tele, no QT prolongation at this time. * continue LR 2. hypokalemia * resolved * monitor 3. Suicide attempt * Seen by Crisis, felt to benefit for inpatient psychiatry given attempt and impulsivity.[] Patient Problems: Active and Suspected Problems (Last Reviewed 07/22/19 @ 23:49 by Jaskaran Hernandez MD) Suicide attempt (Acute) Anticholinergic drug overdose (Acute) - Physical Exam General: Alert, No apparent distress HEENT: Atraumatic, Normocephalic Oral: Moist Mucosa, No Gingival or Mucosal Lesions/ Ulcerations Psych/Mental Status: Appropriate, Flat Affect Vital Signs Temp Pulse Resp BP Pulse Ox 36.6 C 78 21 H 106/70 100 07/24/19 10:00 07/24/19 10:00 07/24/19 10:00 07/24/19 10:00 07/24/19 10:00 Oxygen Flow Rate (L/min) 2 Oxygen Delivery Method Room Air Weight: 105.1 kg Body Mass Index (BMI) 39.2 Intake and Output for Last 24 Hours 07/22/19 07/23/19 07/24/19 23:59 23:59 23:59 Intake Total 3153.25 / 3153.25 100 / 100 Output Total 550 / 550 Balance 2603.25 / 2603.25 100 / 100 Discharge Diet: No Restrictions Discharge Activity: Return to Normal Activity Call your doctor if you observe: - - suicidal thoughts Home Medications: Medications to take at Discharge Acetaminophen [Tylenol Tablet] 650 mg PO Q4H PRN PRN tablet 07/24/19 Primary Care Physician: Care Physician,No Primary [Primary Care Provider] - Disposition: Home Minutes spent on discharge:: 28 Patient Condition:: Good Medical Necessity - Tobacco Use Smoking Status: Current every day smoker Tobacco Use: - Meaningful Use Info Meaningful Use Diagnoses (Choose all that apply): None applicable Code Visit Inpatient E&M: 29681 Disch Hosp
--- NOTE | 2019-07-28 20:38 | ED.RN ---
patient presents to the ER needing work excuse for Friday while being admitted in the ICU
== END 2019-07-24 13:26 | DRG 812 ==
LOC: ED 22:18 → ICU 07-23 00:01
PROVIDERS: Admitting Provider Hospitalist; Emergency Provider Emergency Medicine
DX: T44.3X2A Poisoning by other parasympatholytics [anticholinergics and antimuscarinics] and spasmolytics, intentional self-harm, initial encounter (principal); E87.6 Hypokalemia; F32.9 Major depressive disorder, single episode, unspecified; F17.200 Nicotine dependence, unspecified, uncomplicated; R44.1 Visual hallucinations; Z78.1 Physical restraint status; R45.1 Restlessness and agitation
CPT/HCPCS: 80048; 80307; 80320; 80329; 83735; 84703; 85025; 93005; 99285; J7050; J7120; A4216; G0480

== ENCOUNTER → 2019-08-26 10:17 | Outpatient (CLI) | payer MEDICAID, SELFPAY ==
--- NOTE | 2019-07-21 03:19 | HP_ITS ---
Intake Vital Signs 07/21/19 Body Mass Index (BMI) 39.1 07/21/19 Height 5 ft 5 in 07/21/19 Weight: 235 lb 07/21/19 Body Mass Index (BMI) 39.1 07/21/19 Blood Pressure 117/73 07/21/19 Blood Pressure Location Rt brachial 07/21/19 Respiratory Rate 18 Intake Visit Reasons: C-Scope Consult [facility] ER FU 07/18 [facility] [employer] Required: No Is patient in pain?: No Allergies carbinoxamine [From Ronde] Allergy (Verified 07/21/19 15:09) Hives pseudoephedrine [From Rondec] Allergy (Verified 07/21/19 15:09) Hives Medications Ondansetron [Zofran Odt] 4 mg PO Q8H PRN PRN #10 tab 07/19/19 [Rx Confirmed 07/21/19] PFSH Surgical History Cancer of appendix (Acute) S/P appendectomy (Acute) Family History Mother Asthma Diabetes Social History (Updated 07/21/19 @ 15:19 by Darinel De La Garza MD) Smoking Status: Current every day smoker alcohol intake: never HPI HPI HPI: DIXIE HOLDER, is a 24 F who presents to the office today for HPI HPI Surgical H&P: Yes HPI: DIXIE HOLDER, is a 24 F who presents to the office today for Diarrhea.Patient was seen in [facility] emergency department on 07/18/2019. She was having discomfort in the right flank area going into the right back and was also having chronic diarrhea which is been off and on since the of her son this past January. Really does not matter what she is eating usually she will have to have loose liquidy stools approximately 10 minutes after she eats. Her stools have been green mucousy in nature. She has not seen any primary care physicians since she has just moved up here to [place]. She has No known history of ulcerative colitis Crohn's or irritable bowel. 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 ROS General General: Yes weight change; no appetite, fatigue, colon cancer, breast cancer or weakness HEENT HEENT: No difficulty swallowing, eye injury, eye surgery, swollen glands or hoarseness Endo Endocrine: No thyroid disease, diabetes mellitus, thyroid cancer, Hair loss, heat intolerance or cold intolerance Skin Skin: No rash or changing moles Breast Breast: No left breast lump, right breast lump, nipple discharge, breast pain, abnormal mammogram, abnormal US or breast enlargement Musc Musculoskeletal: No back problems, arthritis, rheumatoid arthritis, gout or joint pain Cardio Cardiovascular: No murmur, pacemaker, heart disease, atrial fibrillation, high blood pressure, heart attack, heart stent, palpitations, shortness of breat with exertion or chest pain Psych Psychiatric: Yes depression and anxiety; no hearing voices Resp Respiratory: No shortness of breath, No sleep apnea, No cough, No COPD, No asthma, No emphysema, No wheezing Gastro Gastrointestinal: Yes abdominal pain, Yes nausea or vomiting, Yes diarrhea, Yes constipation, Yes blood in stool, No acid reflux, Yes hemorrhoids, No ulcers, No gallbladder problem, Yes black,tarry stools Jun Hematologic: No blood thinners, No blood disorders, No bleeding, No anemia, No blood clots Neuro Neurologic: No system reviewed and no additional complaints, except as docu, No as per HPI, No abnormal walking, No abnormal hearing, No abnormal movements, No abnormal speech, No behavioral changes, No burning sensations, No confusion, No seizure-like activity, No unsteadiness, No dizziness, No localized weakness, No frequent falls, No headache(s), No lack of coordination, No loss of vision, No memory loss, No numbness, No other visual disturbances, No radiating pain, No restless legs, No sensory deficit, No fainting, No tingling, No tremor(s), No weakness, No other Exam Const General: no acute distress, well developed, well hydrated Orientation: oriented to person, oriented to place, oriented to time [facility] Head: normocephalic, atraumatic Ears: external ears normal Mouth: moist mucous membranes Eyes Sclera: sclerae normal Pupils: normal by confrontation Neck Neck: no lymphadenopathy noted Neck mass: No Thyroid: thyroid normal, symmetrical Chest Chest palpation & inspection: normal inspection of the chest Breast Palpation: No nipple discharge Resp Effort & Inspection: normal respiratory effort Auscultation: clear to auscultation bilaterally Percussion: percussion normal Cardio Rate: regular rate Rhythm: regular rhythm Heart Sounds: no murmurs GI Inspection: obesity Palpation: soft, no hepatosplenomegaly, no masses, nontender Rectal Exam: other Other: Rectal exam deferred. Extrem General: normal to inspection, no clubbing, cyanosis or edema Assessment & Plan Problems 1. Diarrhea, unspecified type R19.7 2. Right-sided abdominal pain of unknown cause R10.9 Plan I have discussed the above with the patient. I have offered the patient colonoscopy for evaluation. I have explained the risks/benefits of the procedure and described the procedure. I have discussed the risks with the patient, including but not limited to: infection, bleeding, perforation of the GI tract requiring emergency surgery, inability to complete the procedure, injury to any internal organs, complications of anesthesia, etc. - the patient understands and agrees to proceed. I have answered all the patient's questions to the patient's satisfaction and the patient has no further questions. The patient has been given instructions for the colon cleansing preparation. We will be doing random colon biopsies. Coding Level of Care Code Off vis,new,level 3 Diagnoses Diarrhea, unspecified type R19.7 ??Diarrhea type: unspecified type Right-sided abdominal pain of unknown cause R10.9 07/21/19 0969 <Electronically signed by Darinel guy MD> Date _ Darinel De La Garza MD
[2019-07-21 15:09] VITALS: BMI 39.1
[2019-07-23 00:37] VITALS: BMI 39.2
== END ==
PROVIDERS: Referring Provider Surgery; Visit Provider Surgery
DX: R69 Illness, unspecified (principal)